=== PATIENT | female | born 1980 | race Asian ===

== ENCOUNTER 2017-09-26 22:49 | Emergency (ER) | payer SELFPAY ==
[~2017-09-26] VITALS: Ht 167.6 cm; Wt 59.9 kg
[2017-09-26 22:57] VITALS: Ht 167.6 cm; Wt 59.9 kg
[2017-09-27 07:29] VITALS: BP 121/78
== END 2017-09-27 07:29 | disposition home or self-care (01) ==
LOC: ED 22:49
DX: T40.7X5A Adverse effect of cannabis (derivatives), initial encounter (principal); Y92.89 Other specified places as the place of occurrence of the external cause
CPT/HCPCS: J1200